=== PATIENT | female | born 1945 | race Two or more races ===

== ENCOUNTER 2021-12-05 15:50 | Inpatient (IN) | payer OTHER, MEDICAID ==
[~2021-12-05] VITALS: Ht 152.4 cm; Wt 66.9 kg
[2021-12-05] MEDS ORDERED: HEPARIN SODIUM (PORCINE) 5000 UNITS/ML 1ML VIAL IV ONE ×2 (16:00→18:15)
[2021-12-05] MEDS ORDERED: TICAGRELOR 90 MG TAB PO ONE (16:00)
[2021-12-05] MEDS ORDERED: ASPirin 81 mg TAB PO ONE (16:15)
[2021-12-05 16:21] LABS: Basophils # (auto) 0 10 ^3/uL (0-0.2); Basophils % (auto) 0.3 % (0.0-2.0); Eosinophils # (auto) 0 10 ^3/uL (0-0.8); Hematocrit 31.8 % (36.0-46.0); Hemoglobin 10.6 g/dL (12.2-16.2); Lymphocytes # (auto) 0.7 10 ^3/uL (0.4-5.4); Lymphocytes % (auto) 6.6 % (10.0-50.0); Mean Corpuscular Hemoglobin 33.1 pg (28.0-32.0); Mean Corpuscular Hgb Conc. 33.2 g/dL (32.0-36.0); Mean Corpuscular Volume 99.8 fL (80.0-100.0); Monocytes # (auto) 0.8 10 ^3/uL (0-1.3); Monocytes % (auto) 6.9 % (0.0-12.0); Neutrophils # (auto) 9.6 10 ^3/uL (1.6-8.6); Neutrophils % (auto) 86.2 % (37.0-80.0); Nucleated Red Blood Cells % 0.1 %; Red Blood Cells 3.19 10^6/uL (4.0-5.20); Red Cell Distribution Width 15.3 % (11.8-14.3); White Blood Cell 11.1 10^3/uL (4.4-10.8)
[2021-12-05 16:40] LABS: Calcium 8.3 mg/dL (8.5-10.1); Magnesium 2.7 mg/dL (1.6-2.6); Potassium 3.5 mmol/L (3.5-5.1)
[2021-12-05 16:44] LABS: BUN/Creatinine Ratio 13.4; Bilirubin, Total 1.1 mg/dL (0.2-1.0)
[2021-12-05] MEDS ORDERED: ANGIOMAX 250 MG VIAL IV ONE (16:54)
[2021-12-05] MEDS ORDERED: MIDAZOLAM HCL 2MG/2ML 2ml VIAL (1mg/ml) ONE (16:55)
[2021-12-05] MEDS ORDERED: SODIUM CHL 0.9% 0 ML ONE (16:55)
[2021-12-05] MEDS ORDERED: IODIXANOL 320MG/ML 100ML BTL IV ONE (16:55)
[2021-12-05] MEDS ORDERED: fentaNYL CITRATE 100 MCG/2 ML VL ONE (16:55)
[2021-12-05] MEDS ORDERED: LIDOCAINE 2%HCL (LOCAL ANESTH.) INJ 20ML MDV ONE (16:57)
[2021-12-05 17:41] LABS: INR 1.5 (0.9-1.15); Partial Thromboplastin Time 40.7 sec (23.6-33.0)
[2021-12-05] MEDS ORDERED: ACETAMINOPHEN 500 MG TAB PO PRN (18:30)
[2021-12-05] MEDS ORDERED: NITROGLYCERIN 0.4 MG SL TAB SL PRN (18:30)
[2021-12-05] MEDS ORDERED: HYDROcodone-ACET 5/325MG TAB PO PRN (18:30)
[2021-12-05] MEDS ORDERED: MORPHINE SULFATE INJECTION 2 MG/ML SYRG IV PRN (18:30)
[2021-12-05] MEDS: HEPARIN DRIP/D5W 100UNITS/ML 250 ML IV SCH ×2 (19:19→19:28)
[2021-12-05] MEDS ORDERED: DEXTROSE (50%) 50ML SYRG IV PRN (19:30)
[2021-12-05 20:45] VITALS: BP 83/40
[2021-12-05 21:30] VITALS: BP 87/45
[2021-12-05] MEDS: ACCU-CHEK COMFORT CURVE STRIP VI SCH (21:32)
[2021-12-05] MEDS: InsuLIN REG 1unit/0.01ml Soln (100units/ml) SC SCH (21:32)
[2021-12-05 22:00] VITALS: BP 88/41
[2021-12-05 22:30] VITALS: BP 81/39
[2021-12-05 22:45] VITALS: BP 92/40
[2021-12-06] VITALS: BP 89/42
[2021-12-06] MEDS ORDERED: CLOP75TA70 PO (01:18)
[2021-12-06] MEDS ORDERED: MIDO10TA10 PO (01:18)
[2021-12-06] MEDS ORDERED: PANT40T PO (01:18)
[2021-12-06] MEDS ORDERED: LEVO112T4 PO (01:18)
[2021-12-06] MEDS ORDERED: AMLO-496 PO (01:18)
[2021-12-06] MEDS ORDERED: ASPI-325 PO (01:18)
[2021-12-06] MEDS ORDERED: HYDR25TA87 PO (01:18)
[2021-12-06] MEDS ORDERED: FEBU40TA3 PO (01:18)
[2021-12-06] MEDS ORDERED: FENO48TA12 PO (01:18)
[2021-12-06] MEDS ORDERED: METO25TA93 PO (01:18)
[2021-12-06] MEDS ORDERED: FLU01T PO (01:18)
[2021-12-06 01:39] VITALS: BP 96/51
[2021-12-06] MEDS: HEPARIN DRIP/D5W 100UNITS/ML 250 ML IV SCH (01:58)
[2021-12-06 02:56] VITALS: BP 136/65
[2021-12-06 04:24] VITALS: BP 105/49
[2021-12-06] MEDS: InsuLIN REG 1unit/0.01ml Soln (100units/ml) SC SCH (05:16)
[2021-12-06] MEDS: ACCU-CHEK COMFORT CURVE STRIP VI SCH (05:16)
[2021-12-06 05:32] LABS: Anion Gap 20 (5-15); BUN/Creatinine Ratio 12.6; Blood Urea Nitrogen 65 mg/dL (7-18); Calcium 8.6 mg/dL (8.5-10.1); Carbon Dioxide 21 mmol/L (21-32); Chloride 93 mmol/L (98-107); GFR African American 10 mL/min; GFR Non-African American 9 mL/min; Glucose 72 mg/dL (74-106); Sodium 134 mmol/L (136-145)
[2021-12-06 05:56] VITALS: BP 113/47
[2021-12-06 07:03] LABS: Hemoglobin 10.9 g/dL (12.2-16.2)
[2021-12-06 07:09] LABS: Hematocrit 33.2 % (36.0-46.0); Mean Corpuscular Hemoglobin 33.6 pg (28.0-32.0); Mean Corpuscular Hgb Conc. 32.7 g/dL (32.0-36.0); Mean Corpuscular Volume 102.7 fL (80.0-100.0); Red Blood Cells 3.24 10^6/uL (4.0-5.20); Red Cell Distribution Width 15.5 % (11.8-14.3); White Blood Cell 5.6 10^3/uL (4.4-10.8)
[2021-12-06 07:21] LABS: Basophils % (manual) 0 (0.0-2.0); Blast Cells 0; Eosinophils % (manual) 0 (0-7); Metamyelocytes % 0; Promyelocytes % 0; Reactive Lymphocytes 0
[2021-12-06 09:05] LABS: Band Neutrophils % (manual) 8; Lymphocytes % (manual) 1 (10.0-50.0); Monocytes % (manual) 2 (0-12); Myelocytes % 2
[2021-12-06] MEDS ORDERED: SODIUM BICARBONATE 8.4% INJ 50ML SYRINGE IV ONE (11:40)
[2021-12-06] MEDS ORDERED: EPINEPHrine HCL 1 MG/10 ML SYRG IV ONE (11:40)
== END 2021-12-06 15:10 ==
LOC: ER 15:50 → EDBD 15:50 → ER 17:12 → CATH 1 18:25 → TELE-WESTW 18:30
PROVIDERS: ADMIT Internal Medicine; ATTEND Internal Medicine
PROC: B41GYZZ Fluoroscopy of Left Lower Extremity Arteries using Other Contrast (ICD-10-PCS; principal; 2021-12-05)
PROC: B41FYZZ Fluoroscopy of Right Lower Extremity Arteries using Other Contrast (ICD-10-PCS; 2021-12-05)
PROC: 5A12012 Performance of Cardiac Output, Single, Manual (ICD-10-PCS; 2021-12-06)
DX: I21.3 ST elevation (STEMI) myocardial infarction of unspecified site (principal); N18.6 End stage renal disease; J96.01 Acute respiratory failure with hypoxia; E87.1 Hypo-osmolality and hyponatremia; I12.0 Hypertensive chronic kidney disease with stage 5 chronic kidney disease or end stage renal disease; K62.3 Rectal prolapse; Z20.822 Contact with and (suspected) exposure to COVID-19; D64.9 Anemia, unspecified; E11.22 Type 2 diabetes mellitus with diabetic chronic kidney disease; E21.3 Hyperparathyroidism, unspecified; E88.09 Other disorders of plasma-protein metabolism, not elsewhere classified; I25.10 Atherosclerotic heart disease of native coronary artery without angina pectoris; M89.8X9 Other specified disorders of bone, unspecified site; Z99.2 Dependence on renal dialysis; Z90.5 Acquired absence of kidney; I46.9 Cardiac arrest, cause unspecified
CPT/HCPCS: 36415; 71045; 75716; 80048; 80053; 80061; 82962; 83735; 83880; 84484; 85007; 85025; 85027; 85610; 85730; 86850; 86900; 86901; 87081; 92950; 93005; 93925; 96365; 96376; 99152; 99291; G0378; J2250; Q9967